=== PATIENT | male | born 1965 | race African-American/Black ===

== ENCOUNTER 2023-06-30 19:25 | Emergency (ER) | payer OTHER ==
[~2023-06-30] VITALS: Ht 172.7 cm; Wt 63.5 kg
[2023-06-30] MEDS ORDERED: oxyCODONE/APAP (5/325 MG) 1 UDTAB TABLET ONE (20:13)
[2023-06-30] MEDS: oxyCODONE/APAP (5/325 MG) 1 UDTAB TABLET PO ONE (20:17)
[2023-06-30 22:22] VITALS: BP 159/92; TEMP 98; O2SAT 99
== END 2023-06-30 22:22 | disposition home or self-care (01) ==
LOC: ER 19:31
DX: M54.2 Cervicalgia (principal); M25.511 Pain in right shoulder; M54.50 Low back pain, unspecified; R10.2 Pelvic and perineal pain; W01.0XXA Fall on same level from slipping, tripping and stumbling without subsequent striking against object, initial encounter; Y93.89 Activity, other specified; Y92.89 Other specified places as the place of occurrence of the external cause; Y99.8 Other external cause status; I10 Essential (primary) hypertension
CPT/HCPCS: 70450-TC; 72125-TC; 73030-TC; 73060-TC; 73080-TC

== ENCOUNTER 2024-06-05 10:27 | Emergency (ER) | payer OTHER ==
[~2024-06-05] VITALS: Ht 172.7 cm; Wt 65.8 kg
[2024-06-05 10:51] VITALS: BP 137/95; TEMP 98.1
[2024-06-05] MEDS ORDERED: CHLO473M5 PO (11:27)
[2024-06-05] MEDS ORDERED: TRAM50TA2 PO (11:27)
[2024-06-05] MEDS ORDERED: AMOX-430 PO (11:27)
[2024-06-05 11:41] VITALS: O2SAT 99
== END 2024-06-05 11:48 | disposition home or self-care (01) ==
LOC: ER 10:32
DX: K04.7 Periapical abscess without sinus (principal); K03.2 Erosion of teeth; I10 Essential (primary) hypertension; Z60.2 Problems related to living alone

== ENCOUNTER 2024-08-22 21:26 | Emergency (ER) | payer OTHER ==
[~2024-08-22 21:26] MED LIST: AMOX-430 PO; CHLO473M5 PO; TRAM50TA2 PO
[2024-08-23] MEDS ORDERED: AMOX-430 PO (12:19)
[2024-08-23] MEDS ORDERED: TRAM50TA2 PO (12:19)
[2024-08-23] MEDS ORDERED: CHLO473M5 PO (12:19)
== END 2024-08-23 00:27 | disposition left against medical advice (07) ==
LOC: ER 21:28
DX: Z00.00 Encounter for general adult medical examination without abnormal findings (principal); Z53.21 Procedure and treatment not carried out due to patient leaving prior to being seen by health care provider

== ENCOUNTER 2024-08-23 11:30 | Emergency (ER) | payer OTHER ==
[~2024-08-23] VITALS: Ht 172.7 cm; Wt 65.8 kg
[2024-08-23] MEDS ORDERED: AMOX-430 PO (12:19)
[2024-08-23] MEDS ORDERED: TRAM50TA2 PO (12:19)
[2024-08-23] MEDS ORDERED: CHLO473M5 PO (12:19)
[2024-08-23 12:27] VITALS: BP 142/76; TEMP 98; O2SAT 98
== END 2024-08-23 12:28 | disposition home or self-care (01) ==
LOC: ER 11:30
DX: F07.81 Postconcussional syndrome (principal); K04.7 Periapical abscess without sinus; I10 Essential (primary) hypertension; Z60.2 Problems related to living alone; V89.2XXA Person injured in unspecified motor-vehicle accident, traffic, initial encounter; Y93.89 Activity, other specified; Y92.89 Other specified places as the place of occurrence of the external cause; Y99.8 Other external cause status